=== PATIENT | female | born 1990 | race Caucasian/White ===

== ENCOUNTER 2016-11-26 05:09 | Inpatient (IN) | payer MEDICAID, OTHER ==
[2016-11-26 06:10] VITALS: BMI 25.9
[2016-11-26] MEDS: Lactated Ringer's 1,000 ML IV SCH ×2 (06:30→07:14)
[2016-11-26 06:42] LABS: BASO % 0.6 % (0.0-2.0); EOS % 0.5 % (0.0-4.0); HEMATOCRIT 33.3 % (34.0-47.0); LYMPH # 1.9 K/uL (1.0-4.3); LYMPH % 24.9 % (20.0-40.0); MEAN CELL VOLUME 79.1 fl (81.0-99.0); MEAN CORPUSCULAR HEMOGLOBIN 25.9 pg (27.0-31.0); MEAN CORPUSCULAR HGB CONC 32.7 g/dL (33.0-37.0); MEAN PLATELET VOLUME 8.1 fl (7.2-11.7); MONO # 0.4 K/uL (0.0-0.8); MONO % 5.7 % (0.0-10.0); NEUT # 5.3 K/uL (1.8-7.0); NEUT % 68.3 % (50.0-75.0); RED CELL DISTRIBUTION WIDTH 14.4 % (11.5-14.5); WHITE BLOOD COUNT 7.8 K/uL (4.8-10.8)
[2016-11-26] MEDS ORDERED: Lactated Ringer's 1,000 ML IV SCH (06:45)
[2016-11-26] MEDS ORDERED: Oxytocin 30 units/LR 500ML 30 U/500 ML BAG IV SCH (06:45)
[2016-11-26] MEDS ORDERED: Lidocaine 1% Inj (20ml) ONE (06:53)
[2016-11-26] MEDS ORDERED: Oxytocin 30 units/LR 500ML 30 U/500 ML BAG IV ONE (07:01)
[2016-11-26] MEDS ORDERED: Fentanyl/Bupivacaine HCl 250 ML EPI ONE (07:28)
[2016-11-26] MEDS ORDERED: Oxytocin 30 UNITS in Sodium Chloride 0.9% 500 ML IV SCH (07:30)
--- NOTE | 2016-11-26 08:16 | OBHP ---
Datetime: 11/26/2016 08:15 Admit Comment, IP Provider: 26 y/o female at 39.2 wks gestation ASHLEY 12/[birth year] presents with loss of caginal fluid at 3am and intermittent abdominal and back pain shortly after q10min. Denies vaginal b leeding, contractions. Reports good movement. PNC: Seen by Dr. Benedict. PNC unremarkable. GBS negative. Blood Type O+, HIV nonreactive, RPR non reactive, Rubella Immune OBsHx:2 prior (2010, 2014), full term, no complications Form Presser: Last pap 2014, normal PMHx: denies Medications: PNV Allergies: Denies Social: Denies smoking, alcohol, drugs Physical: General: NAD Cardio: RRR, normal S1, S2, No murmurs Resp: Clear to auscultation BL Abdomen: Gravid, NT SSE: + clear fluid in vaginal vault Bimanual: Cervix 4-5cm dilated Abdominal U/S: cephalic presentation FHT: 145 moderate variability, + accelerations, no decelerations Assessment: IUP at 39.2 wks gestation, in active labor, +ROM. Plan: Admit to Labor and delivery. Monitor for progression of labor -Continuous monitoring -Monitor Maternal vital signs q4 -CBC, Type and Screen -Anesthesiology consult -IV fluids -NPO Discussed case with OB Attending Dr. Mu Buenrostro, PGY1 OB attending addendum: Above patient seen and examined by me agree with above assessment and plan. Comments, ACOG Physical Exam: /-1 @ 8am FHR Category Provider Fetus A: Category I NICHD Decel Fetus A IP Provider: None Datetime: 11/26/2016 07:25 IP Adm Impression: Term, intrauterine ; Ruptured Membranes IP Admit Plan: Admit to unit Pelvic Type - PN: Adequate Extremities - PN: Normal Abdomen - PN: Normal Back - PN: Normal Breast - PN: Normal Lungs - PN: Normal Heart - PN: Normal Thyroid - PN: Normal Neurologic - PN: Normal HEENT - PN: Normal General - PN: Normal EGA AdmitDate IP: 39.2 Vital Signs Provider: Reviewed IP Chief Complaint: Suspected ruptured membranes Genitourinary Exam: Normal DTRs - PN: Normal
--- NOTE | 2016-11-26 08:20 | OBADHP ---
Datetime: 11/26/2016 08:15 Admit Comment, IP Provider: 26 y/o female at 39.2 wks gestation ASHLEY 12/01 presents with loss of caginal fluid at 3am and intermittent abdominal and back pain shortly after q10min. Denies vaginal b leeding, contractions. Reports good movement. PNC: Seen by Dr. Benedict. PNC unremarkable. GBS negative. Blood Type O+, HIV nonreactive, RPR non reactive, Rubella Immune OBsHx:2 prior (2010, 2014), full term, no complications Vamp Strap Ironer: Last pap 2014, normal PMHx: denies Medications: PNV Allergies: Denies Social: Denies smoking, alcohol, drugs Physical: General: NAD Cardio: RRR, normal S1, S2, No murmurs Resp: Clear to auscultation BL Abdomen: Gravid, NT SSE: + clear fluid in vaginal vault Bimanual: Cervix 4-5cm dilated Abdominal U/S: cephalic presentation FHT: 145 moderate variability, + accelerations, no decelerations Assessment: IUP at 39.2 wks gestation, in active labor, +ROM. Plan: Admit to Labor and delivery. Monitor for progression of labor -Continuous monitoring -Monitor Maternal vital signs q4 -CBC, Type and Screen -Anesthesiology consult -IV fluids -NPO Discussed case with OB Attending Dr. Mu Buenrostro, PGY1 OB attending addendum: Above patient seen and examined by me agree with above assessment and plan with following addition . 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 Denies current outbreak. States she has not been on antiviral medic for prophylaxis Comments, ACOG Physical Exam: /-1 @ 8am FHR Category Provider Fetus A: Category I NICHD Decel Fetus A IP Provider: None Datetime: 11/26/2016 07:25 Pelvic Type - PN: Adequate Extremities - PN: Normal Abdomen - PN: Normal Back - PN: Normal Breast - PN: Normal Lungs - PN: Normal Heart - PN: Normal Thyroid - PN: Normal Neurologic - PN: Normal HEENT - PN: Normal General - PN: Normal Vital Signs Provider: Reviewed IP Chief Complaint: Suspected ruptured membranes Genitourinary Exam: Normal DTRs - PN: Normal EGA AdmitDate IP: 39.2 IP Adm Impression: Term, intrauterine ; Ruptured Membranes IP Admit Plan: Admit to unit
[2016-11-26] MEDS ORDERED: Benzocaine/Menthol SPRAY TOP PRN ×2 (14:08→16:36)
[2016-11-26] MEDS ORDERED: Oxycodone/Acetaminophen 5/325 mg Tab PO PRN ×2 (14:08→16:36)
--- NOTE | 2016-11-26 14:20 | OBDS ---
MATERNAL INFORMATION Provider Comments: Pt progressed to complete and pushed to deliver a viable male infant through maximiliano r fluid at 1:28 pm. Apgars 9 and 9. Wt 7#15, 3600gms. Infant placed on mother's abdomen. Cord cla mped and cut. Cord blood collected. Placenta delivered spontaneusly intact w/ a3vc at 1:30 pm. Bima nual massage performed to control pp bleeding. Second degree tear repaired w/ 3-0v. Rectum intact. Pt and baby tolerated the procedure well. EBL 400mL LABOR SUMMARY EDC: 12/01/2016 00:00 No. Babies in Womb: 1 LABOR INFORMATION Group B Beta Strep: Negative MEMBRANES Membranes Rupture Method: Spontaneous Amniotic Fluid Color: Clear Amniotic Fluid Amount: Moderate PRESENTATION/POSITION BABY A Presentation: Cephalic
[2016-11-27 08:04] LABS: BASO % 0.2 % (0.0-2.0); EOS % 0.4 % (0.0-4.0); HEMATOCRIT 27.8 % (34.0-47.0); LYMPH % 26.3 % (20.0-40.0); MEAN CELL VOLUME 78.7 fl (81.0-99.0); MEAN CORPUSCULAR HEMOGLOBIN 26.7 pg (27.0-31.0); MEAN CORPUSCULAR HGB CONC 33.9 g/dL (33.0-37.0); MEAN PLATELET VOLUME 7.8 fl (7.2-11.7); MONO # 0.3 K/uL (0.0-0.8); NEUT # 5.2 K/uL (1.8-7.0); NEUT % 69.1 % (50.0-75.0); RED CELL DISTRIBUTION WIDTH 14.4 % (11.5-14.5); WHITE BLOOD COUNT 7.5 K/uL (4.8-10.8)
--- NOTE | 2016-11-27 08:17 | OBPPN ---
Datetime: 11/27/2016 07:54 PP Pain Prov: Within normal limits PP Abdomen/Uterus Prov: Normal PP Lochia Prov: Normal PP Extremities Prov: Normal PP C/S Incision Prov: Not Applicable PP Progress Prov: Not Applicable PP Impression Prov: Normal progression PP Plan Prov: Continue present management PP Progress Note Prov: PPD 1 s/p , doing well, bottle feeding Continue current management Vital Signs Provider PP: Reviewed
--- NOTE | 2016-11-28 09:43 | OBDCSUM ---
Datetime: 11/28/2016 09:42 Discharged to, Provider: Home Follow up at, Provider: Dr. Benedict Disch Instr Activity: Normal activity; May Shower Disch Instr Diet: Regular Discharge Instructions, Provider: Routine instructions given Discharge Diagnosis, Provider: Term Delivered Discharge Time: 11/28/2016 09:43 Follow up in weeks, Provider: 6 weeks Contraception discussed, Prov: No Disch Activity Restrictions: No exercising; No lifting; No sexual activity; Nothing in vagina - Inte rcourse, tampons, douche
--- NOTE | 2016-11-28 09:43 | OBPPN ---
Datetime: 11/28/2016 09:34 PP Pain Prov: Within normal limits PP Nausea Prov: Denies PP Abdomen/Uterus Prov: Normal PP Lochia Prov: Normal PP Extremities Prov: Normal PP Progress Prov: Not Applicable PP Impression Prov: Normal progression PP Plan Prov: Discharge PP Progress Note Prov: PPD 2 s/p , doing wel, bottle feeding Rx's motrin and ferrous sulfate given Dsicharge home today
[2016-11-28 19:07] VITALS: BP 117/69; PULSE 81; RESP 20; TEMP 98.2; O2SAT 97
== END 2016-11-28 13:15 | disposition home or self-care (01) | DRG 372 ==
LOC: H.EROB2 05:09 → H.L&D 06:32 → H.OB/GYN 16:25
PROVIDERS: ADMIT Obstetrics & Gynecology; ATTEND Obstetrics & Gynecology
PROC: 10E0XZZ Delivery of Products of Conception, External Approach (ICD-10-PCS; principal; 2016-11-26)
PROC: 0KQM0ZZ Repair Perineum Muscle, Open Approach (ICD-10-PCS; 2016-11-26)
DX: O70.1 Second degree perineal laceration during delivery (principal); O72.1 Other immediate postpartum hemorrhage; Z37.0 Single live birth; Z3A.39 39 weeks gestation of pregnancy